=== PATIENT | male | born 1980 | race Caucasian/White ===

== ENCOUNTER 2019-01-21 19:06 | Emergency (ER) | payer SELFPAY ==
[~2019-01-21] VITALS: Ht 182.9 cm; Wt 103.9 kg
[2019-01-21 19:08] VITALS: BP 114/70
[2019-01-21] MEDS ORDERED: KETOROLAC 60 MG/2 ML VIAL IM ONE (19:30)
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
[2019-01-21 20:10] VITALS: BP 118/72
--- NOTE | 2019-01-21 20:10 | NUR ---
Patient discharged with v/s stable. Written and verbal after care instructions given and explained. Patient alert, oriented and verbalized understanding of instructions. Ambulatory with steady gait. All questions addressed prior to discharge. ID band removed. Patient advised to follow up with PMD. Rx of NORCO, MOTRIN given. Patient educated on indication of medication including possible reaction and side effects. Opportunity to ask questions provided and answered. PT INSTRUCTED TO NOT DRIVE AFTER TAKING NORCO.
== END 2019-01-21 20:10 | disposition home or self-care (01) ==
LOC: MED 19:06
DX: S13.4XXA Sprain of ligaments of cervical spine, initial encounter (principal); M54.5 Low back pain; K58.9 Irritable bowel syndrome, unspecified; Z90.49 Acquired absence of other specified parts of digestive tract; V49.49XA Driver injured in collision with other motor vehicles in traffic accident, initial encounter; Y93.89 Activity, other specified; Y92.89 Other specified places as the place of occurrence of the external cause; Y99.8 Other external cause status
CPT/HCPCS: 96372; 99283; J1885